=== PATIENT | male | born 1970 | race Caucasian/White ===

== ENCOUNTER 2022-12-26 10:09 | Inpatient (IN) | payer BC ==
[2022-12-26] MEDS ORDERED: Ondansetron PF 4 MG/2 ML Vial ONE (10:44)
[2022-12-26 11:15] LABS: #Eosinphils 0.1 thou/uL (0.0-0.7); #Monocytes 0.1 thou/uL (0.11-0.59); #Neutrophils 7.4 thou/uL (1.40-6.50); %Basophils 0.3 % (0.0-1.0); %Eosinophils 0.7 % (0.0-10.0); %Lymphocytes 20.6 % (21.0-51.0); %Monocytes 1.3 % (0.0-10.0); %Neutrophils 75.8 % (42.0-75.0); Hematocrit 43.9 % (42.0-52.0); Hemoglobin 16.8 g/dL (14.0-18.0); Mean Corpuscular HGB CONC 38.3 g/dL (32.0-36.0); Mean Corpuscular Hemoglobin 32.4 pg (27.0-31.0); Mean Corpuscular Volume 84.7 fl (78.0-98.0); Mean Platelet Volume 8.8 fL (7.4-10.4); Platelet Count 212 10x3/uL (130-400); RBC Distribution Width 11.7 % (11.5-14.5); Red Blood Cell (RBC) Count 5.18 mill/uL (4.70-6.10); White Blood Cell (WBC) Count 9.7 10x3/uL (4.8-10.8)
[2022-12-26 11:16] LABS: ALT (SGPT) 25 U/L (8-55); AST (SGOT) 22 U/L (5-34); Albumin 4.1 g/dL (3.5-5.0); Alkaline Phosphatase 96 U/L (40-110); Anion Gap 17 mmol/L (10-20); BUN (Urea Nitrogen) 9 mg/dL (8.4-25.7); Bilirubin, Total 1.2 mg/dL (0.2-1.2); Calc. Creatinine Clearance 0 mL/min (70-130); Calcium 9.3 mg/dL (7.8-10.44); Carbon Dioxide 21 mmol/L (22-29); Chloride 82 mmol/L (98-107); Estimated GFR 105; Globulin 3.1 g/dL (2.4-3.5); Glucose 111 mg/dL (70-105); Potassium 3.9 mmol/L (3.5-5.1); Protein, Total 7.2 g/dL (6.0-8.3)
[2022-12-26] MEDS ORDERED: fentaNYL 50 mcg/mL 1 mL Vial ONE (11:22)
[2022-12-26 11:30] LABS: Sodium 116 mmol/L (136-145)
[2022-12-26] MEDS ORDERED: Acetaminophen 325 MG TAB PO PRN (13:34)
[2022-12-26] MEDS ORDERED: Fentanyl 100 MCG/2 ML VIAL SLOW IVP PRN (13:39)
[2022-12-26] MEDS ORDERED: Sodium Chloride 0.9% 1,000 ML IV SCH (13:45)
[2022-12-26] MEDS ORDERED: Scopolamine 1.5 mg/72 hour Patch TD SCH (14:00)
[2022-12-26 15:32] LABS: Anion Gap 13 mmol/L (10-20); BUN (Urea Nitrogen) 9 mg/dL (8.4-25.7); Calc. Creatinine Clearance 0 mL/min (70-130); Calcium 8.5 mg/dL (7.8-10.44); Carbon Dioxide 23 mmol/L (22-29); Chloride 84 mmol/L (98-107); Estimated GFR 109; Glucose 118 mg/dL (70-105); Potassium 3.3 mmol/L (3.5-5.1)
[2022-12-26 15:42] LABS: Sodium 117 mmol/L (136-145)
[2022-12-26] MEDS: fentaNYL 50 mcg/mL 1 mL Vial SLOW IVP PRN ×2 (16:57→21:01)
[2022-12-26] MEDS ORDERED: Sodium Chloride 1 GM TAB PO SCH (18:30)
[2022-12-26] MEDS: Potassium Chloride 20 MEQ TAB PO SCH (19:08)
[2022-12-26] MEDS: Ondansetron ODT 4 MG TAB PO PRN (20:55)
[2022-12-26] MEDS: Sodium Chloride 1 GM TAB PO SCH (20:55)
[2022-12-26] MEDS ORDERED: Melatonin 3 MG TAB PO PRN (21:27)
[2022-12-26] MEDS ORDERED: Melatonin 3 MG TAB PO SCH (22:00)
[2022-12-26] MEDS ORDERED: traZODone HCl 50 MG TAB PO SCH (22:00)
[2022-12-26 23:17] LABS: Anion Gap 13 mmol/L (10-20); BUN (Urea Nitrogen) 13 mg/dL (8.4-25.7); Calc. Creatinine Clearance 0 mL/min (70-130); Calcium 8.1 mg/dL (7.8-10.44); Carbon Dioxide 20 mmol/L (22-29); Chloride 87 mmol/L (98-107); Estimated GFR 107; Glucose 103 mg/dL (70-105)
[2022-12-26 23:28] LABS: Sodium 116 mmol/L (136-145)
[2022-12-27] MEDS: Potassium Chloride 20 MEQ TAB PO SCH (03:27)
[2022-12-27 05:57] LABS: Anion Gap 12 mmol/L (10-20); BUN (Urea Nitrogen) 10 mg/dL (8.4-25.7); Calc. Creatinine Clearance 0 mL/min (70-130); Calcium 8.2 mg/dL (7.8-10.44); Carbon Dioxide 22 mmol/L (22-29); Chloride 89 mmol/L (98-107); Estimated GFR 109; Glucose 87 mg/dL (70-105)
[2022-12-27] MEDS: fentaNYL 50 mcg/mL 1 mL Vial SLOW IVP PRN ×3 (05:57→13:32)
[2022-12-27 06:05] LABS: #Eosinphils 0.1 thou/uL (0.0-0.7); #Monocytes 0.1 thou/uL (0.11-0.59); #Neutrophils 4.2 thou/uL (1.40-6.50); %Basophils 0.3 % (0.0-1.0); %Eosinophils 1.1 % (0.0-10.0); %Lymphocytes 29.3 % (21.0-51.0); %Monocytes 1.8 % (0.0-10.0); %Neutrophils 66.9 % (42.0-75.0); Mean Corpuscular HGB CONC 36.7 g/dL (32.0-36.0); Mean Corpuscular Hemoglobin 32.7 pg (27.0-31.0); Mean Platelet Volume 8.2 fL (7.4-10.4); Platelet Count 157 10x3/uL (130-400); RBC Distribution Width 12.1 % (11.5-14.5); Red Blood Cell (RBC) Count 3.88 mill/uL (4.70-6.10); White Blood Cell (WBC) Count 6.3 10x3/uL (4.8-10.8)
[2022-12-27 06:06] LABS: Hematocrit 34.6 % (42.0-52.0); Hemoglobin 12.7 g/dL (14.0-18.0); Mean Corpuscular Volume 89.2 fl (78.0-98.0)
[2022-12-27 06:06] LABS: Sodium 119 mmol/L (136-145)
[2022-12-27] MEDS: Ondansetron PF 4 MG/2 ML Vial IVP PRN ×3 (09:09→20:59)
[2022-12-27] MEDS: Sodium Chloride 1 GM TAB PO SCH ×3 (09:09→20:59)
[2022-12-27] MEDS ORDERED: Amlodipine 5 MG TAB PO SCH (10:15)
[2022-12-27 10:23] VITALS: BMI 37.0
[2022-12-27 13:49] LABS: Anion Gap 12 mmol/L (10-20); BUN (Urea Nitrogen) 11 mg/dL (8.4-25.7); Calc. Creatinine Clearance 151 mL/min (70-130); Calcium 8.6 mg/dL (7.8-10.44); Carbon Dioxide 23 mmol/L (22-29); Chloride 87 mmol/L (98-107); Estimated GFR 105; Glucose 98 mg/dL (70-105); Potassium 4.2 mmol/L (3.5-5.1)
[2022-12-27] MEDS ORDERED: Ketorolac Tromethamine 30 MG/ML VIAL IVP PRN (13:51)
[2022-12-27 13:53] LABS: Sodium 118 mmol/L (136-145)
[2022-12-27] MEDS ORDERED: Promethazine HCl 25 MG in Sodium Chloride 0.9% 50 ML IVPB PRN (15:26)
[2022-12-27] MEDS: Morphine 2 MG/ML VIAL SLOW IVP PRN (17:38)
[2022-12-27 20:29] LABS: Anion Gap 16 mmol/L (10-20); BUN (Urea Nitrogen) 11 mg/dL (8.4-25.7); Calc. Creatinine Clearance 167 mL/min (70-130); Calcium 8.3 mg/dL (7.8-10.44); Carbon Dioxide 20 mmol/L (22-29); Chloride 88 mmol/L (98-107); Estimated GFR 108; Glucose 99 mg/dL (70-105); Sodium 120 mmol/L (136-145)
[2022-12-27] MEDS: Zolpidem Tartrate 5 MG TAB PO PRN (20:59)
[2022-12-28 05:50] LABS: #Eosinphils 0.1 thou/uL (0.0-0.7); #Monocytes 0.1 thou/uL (0.11-0.59); #Neutrophils 3.1 thou/uL (1.40-6.50); %Basophils 0.8 % (0.0-1.0); %Eosinophils 1.2 % (0.0-10.0); %Lymphocytes 31.7 % (21.0-51.0); %Monocytes 2.8 % (0.0-10.0); %Neutrophils 62.1 % (42.0-75.0); Hemoglobin 12.7 g/dL (14.0-18.0); Mean Corpuscular HGB CONC 36.3 g/dL (32.0-36.0); Mean Corpuscular Hemoglobin 32.3 pg (27.0-31.0); Mean Corpuscular Volume 89.1 fl (78.0-98.0); Mean Platelet Volume 8.2 fL (7.4-10.4); Platelet Count 161 10x3/uL (130-400); RBC Distribution Width 11.9 % (11.5-14.5); Red Blood Cell (RBC) Count 3.93 mill/uL (4.70-6.10)
[2022-12-28 06:17] LABS: Anion Gap 14 mmol/L (10-20); BUN (Urea Nitrogen) 8 mg/dL (8.4-25.7); Calc. Creatinine Clearance 163 mL/min (70-130); Calcium 8.3 mg/dL (7.8-10.44); Carbon Dioxide 23 mmol/L (22-29); Chloride 87 mmol/L (98-107); Estimated GFR 107; Glucose 86 mg/dL (70-105); Potassium 3.8 mmol/L (3.5-5.1); Sodium 120 mmol/L (136-145)
[2022-12-28] MEDS: oxyCODONE 5 MG TAB PO SCH (08:52)
[2022-12-28] MEDS: Sodium Chloride 1 GM TAB PO SCH ×3 (08:53→20:44)
[2022-12-28] MEDS: Morphine ER 15 MG TAB PO SCH (08:55)
[2022-12-28] MEDS: Ondansetron PF 4 MG/2 ML Vial IVP PRN ×2 (08:56→16:01)
[2022-12-28] MEDS: Propranolol HCl LA 80 MG CAP PO SCH (08:56)
[2022-12-28] MEDS ORDERED: Amlodipine 5 MG TAB PO SCH ×2 (09:00→10:47)
[2022-12-28] MEDS: Morphine 2 MG/ML VIAL SLOW IVP PRN ×2 (10:29→16:02)
[2022-12-28] MEDS ORDERED: Amlodipine 10 MG TAB PO SCH (11:15)
[2022-12-28 16:37] LABS: Anion Gap 13 mmol/L (10-20); BUN (Urea Nitrogen) 10 mg/dL (8.4-25.7); Calc. Creatinine Clearance 120 mL/min (70-130); Calcium 8.9 mg/dL (7.8-10.44); Carbon Dioxide 24 mmol/L (22-29); Chloride 92 mmol/L (98-107); Estimated GFR 84; Glucose 110 mg/dL (70-105); Potassium 4.2 mmol/L (3.5-5.1); Sodium 125 mmol/L (136-145)
[2022-12-28] MEDS: Zolpidem Tartrate 5 MG TAB PO PRN (20:44)
[2022-12-29 06:01] LABS: #Basophils 0.1 thou/uL (0.0-0.2); #Monocytes 0.2 thou/uL (0.11-0.59); #Neutrophils 2.5 thou/uL (1.40-6.50); %Eosinophils 0.6 % (0.0-10.0); %Monocytes 4.4 % (0.0-10.0); %Neutrophils 52.8 % (42.0-75.0); Hemoglobin 13.3 g/dL (14.0-18.0); Mean Corpuscular HGB CONC 35.9 g/dL (32.0-36.0); Mean Corpuscular Hemoglobin 32.8 pg (27.0-31.0); Mean Corpuscular Volume 91.1 fl (78.0-98.0); Mean Platelet Volume 8.2 fL (7.4-10.4); Platelet Count 134 10x3/uL (130-400); RBC Distribution Width 12.1 % (11.5-14.5); Red Blood Cell (RBC) Count 4.06 mill/uL (4.70-6.10); White Blood Cell (WBC) Count 4.8 10x3/uL (4.8-10.8)
[2022-12-29 06:24] LABS: Anion Gap 15 mmol/L (10-20); BUN (Urea Nitrogen) 13 mg/dL (8.4-25.7); Calc. Creatinine Clearance 125 mL/min (70-130); Calcium 8.8 mg/dL (7.8-10.44); Carbon Dioxide 22 mmol/L (22-29); Chloride 95 mmol/L (98-107); Estimated GFR 88; Glucose 104 mg/dL (70-105); Potassium 4.4 mmol/L (3.5-5.1); Sodium 128 mmol/L (136-145)
[2022-12-29] MEDS: Ondansetron PF 4 MG/2 ML Vial IVP PRN (06:31)
[2022-12-29] MEDS: Morphine 2 MG/ML VIAL SLOW IVP PRN (06:31)
[2022-12-29 07:23] VITALS: BP 119/88; TEMP 97.7
[2022-12-29] MEDS: oxyCODONE 5 MG TAB PO SCH (08:37)
[2022-12-29] MEDS: Morphine ER 15 MG TAB PO SCH (08:38)
[2022-12-29] MEDS: Propranolol HCl LA 80 MG CAP PO SCH (08:39)
[2022-12-29] MEDS ORDERED: Amlodipine 10 MG TAB PO SCH (09:00)
[2022-12-29] MEDS ORDERED: Sodium Chloride 1 GM TAB PO SCH (09:00)
[2022-12-29] MEDS: Ondansetron ODT 4 MG TAB PO PRN (09:00)
== END 2022-12-29 11:45 | disposition home or self-care (01) | DRG 644 ==
LOC: ERS 10:09 → SUATTDRO 10:09 → 2SW 15:36 → OBSVTOIN 12-27 10:13
PROVIDERS: ADMIT Family Medicine; ATTEND Internal Medicine
DX: E22.2 Syndrome of inappropriate secretion of antidiuretic hormone (principal); C34.90 Malignant neoplasm of unspecified part of unspecified bronchus or lung; E87.20 Acidosis, unspecified; C78.7 Secondary malignant neoplasm of liver and intrahepatic bile duct; R11.2 Nausea with vomiting, unspecified; T45.1X5A Adverse effect of antineoplastic and immunosuppressive drugs, initial encounter; E66.9 Obesity, unspecified; I10 Essential (primary) hypertension; E87.6 Hypokalemia; Z79.899 Other long term (current) drug therapy; Z88.8 Allergy status to other drugs, medicaments and biological substances; Z87.891 Personal history of nicotine dependence; Z68.37 Body mass index [BMI] 37.0-37.9, adult
CPT/HCPCS: 36415; 71045; 80048; 80053; 83605; 83735; 83930; 83935; 84484; 85025; 93005; 96361; 96374; 96375; 96376; G0378; J1885; J2272; J2405; J2550; J3010; Q0162

== ENCOUNTER 2023-03-17 16:14 | Emergency (ER) | payer BC ==
[~2023-03-17 16:14] MED LIST: Iopamidol-370 76% 500 ML MDV (1 ML CHARGE) ONE
[2023-03-17 16:36] LABS: #Monocytes 0.9 thou/uL (0.11-0.59); #Neutrophils 6.1 thou/uL (1.40-6.50); %Basophils 0.1 % (0.0-1.0); %Eosinophils 0.2 % (0.0-10.0); %Lymphocytes 27.9 % (21.0-51.0); %Monocytes 8.6 % (0.0-10.0); %Neutrophils 61.1 % (42.0-75.0); Hemoglobin 12.6 g/dL (14.0-18.0); Mean Corpuscular Hemoglobin 36.2 pg (27.0-31.0); Mean Corpuscular Volume 103.4 fl (78.0-98.0); Platelet Count 127 10x3/uL (130-400); RBC Distribution Width 22.1 % (11.5-14.5); Red Blood Cell (RBC) Count 3.48 mill/uL (4.70-6.10); White Blood Cell (WBC) Count 9.9 10x3/uL (4.8-10.8)
[2023-03-17 17:03] LABS: ALT (SGPT) 44 U/L (8-55); AST (SGOT) 26 U/L (5-34); Albumin 3.9 g/dL (3.5-5.0); Alkaline Phosphatase 51 U/L (40-110); Anion Gap 12 mmol/L (10-20); BUN (Urea Nitrogen) 15 mg/dL (8.4-25.7); Bilirubin, Total 0.4 mg/dL (0.2-1.2); Calc. Creatinine Clearance 0 mL/min (70-130); Calcium 8.4 mg/dL (7.8-10.44); Carbon Dioxide 26 mmol/L (22-29); Chloride 99 mmol/L (98-107); Estimated GFR 106; Globulin 1.5 g/dL (2.4-3.5); Glucose 165 mg/dL (70-105); Potassium 3.7 mmol/L (3.5-5.1); Protein, Total 5.4 g/dL (6.0-8.3); Sodium 133 mmol/L (136-145)
[2023-03-17 17:04] LABS: Troponin I 0.012 ng/mL (< 0.028)
[2023-03-17] MEDS ORDERED: Morphine 4 MG/ML VIAL ONE (17:26)
[2023-03-17 18:14] LABS: Phosphorus 3.5 mg/dL (2.3-4.7); Uric Acid 4.4 mg/dL (3.5-7.2)
== END 2023-03-17 19:01 | disposition home or self-care (01) ==
LOC: ERS 16:14
DX: R07.9 Chest pain, unspecified (principal); I10 Essential (primary) hypertension; Z79.899 Other long term (current) drug therapy
CPT/HCPCS: 36415; 71046; 71275; 80053; 84100; 84484; 84550; 85025; 93005; 96361; 96374; J2270; Q9967

== ENCOUNTER 2023-03-21 17:19 | Inpatient (IN) | payer BC ==
[2023-03-21 17:59] LABS: #Monocytes 1.9 thou/uL (0.11-0.59); #Neutrophils 9.3 thou/uL (1.40-6.50); %Basophils 0.1 % (0.0-1.0); %Eosinophils 0.1 % (0.0-10.0); %Lymphocytes 19.8 % (21.0-51.0); %Monocytes 13.2 % (0.0-10.0); %Neutrophils 64.9 % (42.0-75.0); Hematocrit 34.4 % (42.0-52.0); Hemoglobin 12.7 g/dL (14.0-18.0); Mean Corpuscular HGB CONC 36.9 g/dL (32.0-36.0); Mean Corpuscular Hemoglobin 36.4 pg (27.0-31.0); Mean Corpuscular Volume 98.6 fl (78.0-98.0); Mean Platelet Volume 9.7 fL (7.4-10.4); Platelet Count 141 10x3/uL (130-400); RBC Distribution Width 20.6 % (11.5-14.5); Red Blood Cell (RBC) Count 3.49 mill/uL (4.70-6.10); White Blood Cell (WBC) Count 14.3 10x3/uL (4.8-10.8)
[2023-03-21] MEDS ORDERED: Ondansetron PF 4 MG/2 ML Vial ONE (18:11)
[2023-03-21] MEDS ORDERED: Morphine 4 MG/ML VIAL ONE (18:11)
[2023-03-21] MEDS ORDERED: Aspirin Chewable 81 MG TAB ONE (18:11)
[2023-03-21] MEDS ORDERED: Mag-Al 1200 mg/1200 mg/30 ML UDCUP ONE (18:11)
[2023-03-21 18:20] LABS: ALT (SGPT) 35 U/L (8-55); AST (SGOT) 21 U/L (5-34); Albumin 4.4 g/dL (3.5-5.0); Alkaline Phosphatase 58 U/L (40-110); Anion Gap 14 mmol/L (10-20); BUN (Urea Nitrogen) 13 mg/dL (8.4-25.7); Bilirubin, Total 0.6 mg/dL (0.2-1.2); Calc. Creatinine Clearance 0 mL/min (70-130); Calcium 9.1 mg/dL (7.8-10.44); Carbon Dioxide 24 mmol/L (22-29); Chloride 87 mmol/L (98-107); Estimated GFR 104; Glucose 127 mg/dL (70-105); Potassium 3.7 mmol/L (3.5-5.1); Protein, Total 6.4 g/dL (6.0-8.3); Sodium 121 mmol/L (136-145)
[2023-03-21 18:25] LABS: Troponin I Less than 0.010 ng/mL (< 0.028)
[2023-03-21] MEDS ORDERED: Acetaminophen 325 MG TAB PO PRN ×2 (21:15→21:29)
[2023-03-21] MEDS ORDERED: Ondansetron PF 4 MG/2 ML Vial IVP PRN ×2 (21:15→21:29)
[2023-03-21] MEDS ORDERED: Ondansetron ODT 4 MG TAB SL PRN (21:15)
[2023-03-21 21:18] VITALS: BMI 35.9
[2023-03-21] MEDS: Sodium Chloride 1 GM TAB PO SCH (21:18)
[2023-03-21] MEDS: Morphine 4 MG/ML VIAL SLOW IVP PRN (21:19)
[2023-03-21] MEDS ORDERED: Acetaminophen 650 MG Suppository PR PRN (21:29)
[2023-03-21] MEDS ORDERED: Ondansetron ODT 4 MG TAB PO PRN (21:29)
[2023-03-21] MEDS ORDERED: Mag-Al 1200 mg/1200 mg/30 ML UDCUP PO PRN (21:36)
[2023-03-21] MEDS ORDERED: Ondansetron ODT 8 MG TAB PO PRN (21:38)
[2023-03-21] MEDS ORDERED: Morphine ER 15 MG TAB PO SCH (21:45)
[2023-03-21] MEDS ORDERED: Famotidine/PF 20 mg/2ml Vial SLOW IVP SCH (21:45)
[2023-03-21] MEDS ORDERED: Lidocaine 4% Patch TD SCH (21:45)
[2023-03-21] MEDS ORDERED: Naloxone HCl 0.4 mg/ml Vial IV PRN (22:59)
[2023-03-21] MEDS ORDERED: diphenhydrAMINE 25 MG CAP PO SCH (23:45)
[2023-03-21] MEDS ORDERED: Propranolol HCl LA 80 MG CAP PO SCH (23:59)
[2023-03-22] MEDS ORDERED: Labetalol HCl 100 MG/20 ML VIAL SLOW IVP SCH (01:00)
[2023-03-22] MEDS: Morphine 4 MG/ML VIAL SLOW IVP PRN (02:20)
[2023-03-22 05:14] LABS: #Monocytes 1.2 thou/uL (0.11-0.59); #Neutrophils 7.6 thou/uL (1.40-6.50); %Basophils 0.1 % (0.0-1.0); %Lymphocytes 19.1 % (21.0-51.0); %Monocytes 10.8 % (0.0-10.0); %Neutrophils 68.6 % (42.0-75.0); Hematocrit 33.6 % (42.0-52.0); Hemoglobin 12.2 g/dL (14.0-18.0); Mean Corpuscular HGB CONC 36.3 g/dL (32.0-36.0); Mean Corpuscular Volume 99.1 fl (78.0-98.0); Mean Platelet Volume 9.6 fL (7.4-10.4); Platelet Count 130 10x3/uL (130-400); RBC Distribution Width 20.9 % (11.5-14.5); Red Blood Cell (RBC) Count 3.39 mill/uL (4.70-6.10); White Blood Cell (WBC) Count 11.1 10x3/uL (4.8-10.8)
[2023-03-22 05:41] LABS: Anion Gap 12 mmol/L (10-20); BUN (Urea Nitrogen) 10 mg/dL (8.4-25.7); Calc. Creatinine Clearance 179 mL/min (70-130); Calcium 8.5 mg/dL (7.8-10.44); Carbon Dioxide 22 mmol/L (22-29); Chloride 89 mmol/L (98-107); Estimated GFR 111; Glucose 104 mg/dL (70-105); Potassium 3.8 mmol/L (3.5-5.1)
[2023-03-22 05:45] LABS: Sodium 119 mmol/L (136-145)
[2023-03-22] MEDS: Calcium Carbonate 500 MG ChewTAB PO PRN (05:53)
[2023-03-22] MEDS ORDERED: Admixture Fee 1 EACH in Sodium Chloride 3% 100 ML IVPB SCH (08:00)
[2023-03-22] MEDS: diphenhydrAMINE 25 MG CAP PO SCH (08:32)
[2023-03-22] MEDS ORDERED: Amlodipine 5 MG TAB PO SCH ×2 (09:00→12:45)
[2023-03-22] MEDS ORDERED: oxyCODONE 5 MG TAB PO SCH (09:00)
[2023-03-22] MEDS ORDERED: Famotidine 20 MG TAB PO SCH (09:00)
[2023-03-22] MEDS ORDERED: Morphine ER 15 MG TAB PO SCH (09:00)
[2023-03-22] MEDS: Polyethylene Glycol 3350 17 GM Packet PO SCH (09:07)
[2023-03-22] MEDS: Senokot S 8.6-50 MG TAB PO SCH ×2 (09:07→20:26)
[2023-03-22] MEDS: Sodium Chloride 1 GM TAB PO SCH ×3 (09:07→20:25)
[2023-03-22] MEDS: Morphine ER 30 MG TAB PO SCH ×2 (09:08→20:36)
[2023-03-22] MEDS: oxyCODONE 5 MG TAB PO SCH ×3 (09:09→20:27)
[2023-03-22] MEDS ORDERED: Transdermal Patch Removal TOP SCH (09:45)
[2023-03-22] MEDS ORDERED: Spironolactone 25 MG TAB PO SCH (10:00)
[2023-03-22] MEDS ORDERED: Torsemide 10 MG TAB PO SCH (10:00)
[2023-03-22 11:07] LABS: Anion Gap 11 mmol/L (10-20); BUN (Urea Nitrogen) 10 mg/dL (8.4-25.7); Calc. Creatinine Clearance 182 mL/min (70-130); Calcium 8.5 mg/dL (7.8-10.44); Carbon Dioxide 23 mmol/L (22-29); Chloride 89 mmol/L (98-107); Estimated GFR 112; Glucose 123 mg/dL (70-105); Potassium 3.4 mmol/L (3.5-5.1); Sodium 120 mmol/L (136-145)
[2023-03-22 15:15] LABS: Anion Gap 13 mmol/L (10-20); BUN (Urea Nitrogen) 9 mg/dL (8.4-25.7); Calc. Creatinine Clearance 177 mL/min (70-130); Calcium 8.2 mg/dL (7.8-10.44); Carbon Dioxide 25 mmol/L (22-29); Chloride 86 mmol/L (98-107); Estimated GFR 111; Glucose 113 mg/dL (70-105); Potassium 3.1 mmol/L (3.5-5.1); Sodium 121 mmol/L (136-145)
[2023-03-22 17:32] LABS: Magnesium 1.7 mg/dL (1.6-2.6)
[2023-03-22] MEDS: Potassium Chloride 20 MEQ TAB PO SCH (17:37)
[2023-03-22 18:27] LABS: Anion Gap 15 mmol/L (10-20); BUN (Urea Nitrogen) 8 mg/dL (8.4-25.7); Calc. Creatinine Clearance 185 mL/min (70-130); Calcium 8.3 mg/dL (7.8-10.44); Carbon Dioxide 21 mmol/L (22-29); Chloride 87 mmol/L (98-107); Estimated GFR 112; Glucose 104 mg/dL (70-105); Potassium 3.3 mmol/L (3.5-5.1); Sodium 120 mmol/L (136-145)
[2023-03-22] MEDS: Temazepam 15 MG CAP PO PRN (20:27)
[2023-03-22] MEDS: Propranolol HCl LA 80 MG CAP PO SCH (20:28)
[2023-03-22] MEDS ORDERED: Propranolol HCl LA 80 MG CAP PO SCH (21:00)
[2023-03-22 22:37] LABS: Anion Gap 11 mmol/L (10-20); BUN (Urea Nitrogen) 6 mg/dL (8.4-25.7); Calc. Creatinine Clearance 199 mL/min (70-130); Calcium 8.1 mg/dL (7.8-10.44); Carbon Dioxide 24 mmol/L (22-29); Chloride 87 mmol/L (98-107); Estimated GFR 115; Glucose 105 mg/dL (70-105); Potassium 3.6 mmol/L (3.5-5.1)
[2023-03-22 22:41] LABS: Sodium 118 mmol/L (136-145)
[2023-03-22] MEDS ORDERED: Sodium Chloride 3% 200 ML IVPB SCH (23:59)
[2023-03-23] MEDS: Potassium Chloride 20 MEQ TAB PO SCH (00:30)
[2023-03-23] MEDS: diphenhydrAMINE 25 MG CAP PO SCH (00:30)
[2023-03-23 04:56] LABS: #Monocytes 1.5 thou/uL (0.11-0.59); #Neutrophils 8.2 thou/uL (1.40-6.50); %Basophils 0.1 % (0.0-1.0); %Lymphocytes 17.7 % (21.0-51.0); %Monocytes 12.3 % (0.0-10.0); %Neutrophils 68.7 % (42.0-75.0); Hematocrit 32.4 % (42.0-52.0); Hemoglobin 11.9 g/dL (14.0-18.0); Mean Corpuscular HGB CONC 36.7 g/dL (32.0-36.0); Mean Corpuscular Hemoglobin 36.7 pg (27.0-31.0); Mean Platelet Volume 9.2 fL (7.4-10.4); Platelet Count 128 10x3/uL (130-400); RBC Distribution Width 20.4 % (11.5-14.5); Red Blood Cell (RBC) Count 3.24 mill/uL (4.70-6.10); White Blood Cell (WBC) Count 11.9 10x3/uL (4.8-10.8)
[2023-03-23 05:20] LABS: Anion Gap 12 mmol/L (10-20); BUN (Urea Nitrogen) 5 mg/dL (8.4-25.7); Calc. Creatinine Clearance 182 mL/min (70-130); Calcium 8.3 mg/dL (7.8-10.44); Carbon Dioxide 25 mmol/L (22-29); Chloride 88 mmol/L (98-107); Estimated GFR 112; Glucose 91 mg/dL (70-105); Potassium 3.7 mmol/L (3.5-5.1); Sodium 121 mmol/L (136-145)
[2023-03-23] MEDS ORDERED: fentaNYL 50 mcg/hour Patch TD SCH (09:00)
[2023-03-23] MEDS ORDERED: Tolvaptan 15 MG TAB PO SCH (09:00)
[2023-03-23] MEDS: Torsemide 10 MG TAB PO SCH (09:48)
[2023-03-23] MEDS: Spironolactone 25 MG TAB PO SCH (09:48)
[2023-03-23] MEDS: Amlodipine 10 MG TAB PO SCH (09:48)
[2023-03-23] MEDS: Senokot S 8.6-50 MG TAB PO SCH ×2 (09:48→20:48)
[2023-03-23] MEDS: Propranolol HCl LA 80 MG CAP PO SCH ×2 (09:48→21:01)
[2023-03-23] MEDS: Sodium Chloride 1 GM TAB PO SCH ×3 (09:48→20:47)
[2023-03-23] MEDS: Morphine ER 30 MG TAB PO SCH ×2 (09:49→20:47)
[2023-03-23] MEDS: Polyethylene Glycol 3350 17 GM Packet PO SCH (09:50)
[2023-03-23] MEDS: oxyCODONE 5 MG TAB PO SCH ×3 (09:50→20:45)
[2023-03-23] MEDS ORDERED: Magnesium 2 GM/50 ML(in water) 2 GM in Premix 1 BAG IVPB SCH (10:00)
[2023-03-23 12:30] LABS: Anion Gap 12 mmol/L (10-20); BUN (Urea Nitrogen) 7 mg/dL (8.4-25.7); Calc. Creatinine Clearance 179 mL/min (70-130); Calcium 8.5 mg/dL (7.8-10.44); Carbon Dioxide 23 mmol/L (22-29); Chloride 89 mmol/L (98-107); Estimated GFR 111; Glucose 118 mg/dL (70-105); Potassium 3.7 mmol/L (3.5-5.1); Sodium 120 mmol/L (136-145)
[2023-03-23] MEDS: Calcium Carbonate 500 MG ChewTAB PO PRN (13:06)
[2023-03-23] MEDS ORDERED: Calcium Carbonate 500 MG ChewTAB PO PRN (13:18)
[2023-03-23] MEDS: Famotidine 20 MG TAB PO PRN (15:15)
[2023-03-23 18:21] LABS: Anion Gap 13 mmol/L (10-20); BUN (Urea Nitrogen) 7 mg/dL (8.4-25.7); Calc. Creatinine Clearance 153 mL/min (70-130); Carbon Dioxide 26 mmol/L (22-29); Chloride 92 mmol/L (98-107); Estimated GFR 106; Glucose 141 mg/dL (70-105); Sodium 127 mmol/L (136-145)
[2023-03-23] MEDS: Temazepam 15 MG CAP PO PRN (21:01)
[2023-03-24 05:03] LABS: #Monocytes 1.5 thou/uL (0.11-0.59); #Neutrophils 9.3 thou/uL (1.40-6.50); %Basophils 0.1 % (0.0-1.0); %Lymphocytes 14.9 % (21.0-51.0); %Monocytes 11.9 % (0.0-10.0); %Neutrophils 72.2 % (42.0-75.0); Hematocrit 36.3 % (42.0-52.0); Hemoglobin 12.9 g/dL (14.0-18.0); Mean Corpuscular HGB CONC 35.5 g/dL (32.0-36.0); Mean Corpuscular Hemoglobin 36.4 pg (27.0-31.0); Mean Corpuscular Volume 102.5 fl (78.0-98.0); Mean Platelet Volume 8.6 fL (7.4-10.4); Platelet Count 138 10x3/uL (130-400); Red Blood Cell (RBC) Count 3.54 mill/uL (4.70-6.10); White Blood Cell (WBC) Count 12.9 10x3/uL (4.8-10.8)
[2023-03-24 05:32] LABS: Anion Gap 12 mmol/L (10-20); BUN (Urea Nitrogen) 6 mg/dL (8.4-25.7); Calc. Creatinine Clearance 161 mL/min (70-130); Carbon Dioxide 29 mmol/L (22-29); Chloride 97 mmol/L (98-107); Estimated GFR 108; Glucose 108 mg/dL (70-105); Potassium 3.7 mmol/L (3.5-5.1); Sodium 134 mmol/L (136-145)
[2023-03-24 07:51] VITALS: BP 162/114; TEMP 98
[2023-03-24] MEDS: Famotidine 20 MG TAB PO PRN (08:29)
[2023-03-24] MEDS: Senokot S 8.6-50 MG TAB PO SCH (08:30)
[2023-03-24] MEDS: Polyethylene Glycol 3350 17 GM Packet PO SCH (08:30)
[2023-03-24] MEDS: Spironolactone 25 MG TAB PO SCH (08:30)
[2023-03-24] MEDS: Amlodipine 10 MG TAB PO SCH (08:30)
[2023-03-24] MEDS: Morphine ER 30 MG TAB PO SCH (08:31)
[2023-03-24] MEDS: Torsemide 10 MG TAB PO SCH (08:31)
[2023-03-24] MEDS: Propranolol HCl LA 80 MG CAP PO SCH (08:31)
[2023-03-24] MEDS: oxyCODONE 5 MG TAB PO SCH (08:32)
== END 2023-03-24 11:15 | disposition home or self-care (01) | DRG 644 ==
LOC: ERS 17:19 → SJJU 19:49 → OBSVTOIN 03-22 08:44 → MSONC 03-23 18:16
PROVIDERS: ADMIT Student in an Organized Health Care Education/Training Program; ATTEND Family Medicine
DX: E22.2 Syndrome of inappropriate secretion of antidiuretic hormone (principal); C34.92 Malignant neoplasm of unspecified part of left bronchus or lung; C78.7 Secondary malignant neoplasm of liver and intrahepatic bile duct; C79.89 Secondary malignant neoplasm of other specified sites; I10 Essential (primary) hypertension; I87.2 Venous insufficiency (chronic) (peripheral); E87.6 Hypokalemia; E83.42 Hypomagnesemia; Z88.8 Allergy status to other drugs, medicaments and biological substances; Z79.899 Other long term (current) drug therapy; Z98.890 Other specified postprocedural states; Z87.891 Personal history of nicotine dependence
CPT/HCPCS: 36415; 71045; 80048; 80053; 83735; 84484; 85025; 93005; 93970; 96374; 96375; J1642; J1650; J2270; J2405; J3475; J7131; S0028